=== PATIENT | female | born 1995 ===

== ENCOUNTER 2017-03-20 15:29 | Emergency (ER) | payer BC, MEDICAID ==
[2017-03-20 15:29] VITALS: BMI 37.0
[2017-03-20 16:31] LABS: BASO # 0.1 K/uL (0.0-0.2); BASO % 0.7 % (0.0-2.0); EOS # 0.1 K/uL (0.0-0.7); EOS % 0.7 % (0.0-4.0); HEMATOCRIT 38.1 % (34.0-47.0); LYMPH # 3.1 K/uL (1.0-4.3); LYMPH % 30.7 % (20.0-40.0); MEAN CORPUSCULAR HEMOGLOBIN 26.6 pg (27.0-31.0); MEAN CORPUSCULAR HGB CONC 33.1 g/dL (33.0-37.0); MEAN PLATELET VOLUME 8.5 fL (7.2-11.7); MONO # 0.4 K/uL (0.0-0.8); MONO % 4.1 % (0.0-10.0); RED CELL DISTRIBUTION WIDTH 14.4 % (11.5-14.5)
[2017-03-20 16:32] LABS: MEAN CELL VOLUME 80.3 fL (81.0-99.0)
[2017-03-20 16:38] LABS: CHLORIDE 101 mmol/L (98-107)
[2017-03-20 16:39] LABS: POTASSIUM 3.8 mmol/L (3.6-5.2); SODIUM 137 mmol/L (132-148)
[2017-03-20 16:41] LABS: ALB/GLOB RATIO 1.3 (1.0-2.1); ALKALINE PHOSPHATASE 71 U/L (38-126); AST/SGOT 29 U/L (14-36); BILIRUBIN,TOTAL 0.5 mg/dL (0.2-1.3); BLOOD UREA NITROGEN 11 mg/dL (7-17); CARBON DIOXIDE 24 mmol/L (22-30); GFR AFRICAN-AMERICAN > 60; TOTAL PROTEIN 7.7 g/dL (6.3-8.3)
[2017-03-20 16:42] LABS: ALCOHOL SERUM < 10 mg/dl (0-10); ALT/SGPT 27 U/L (9-52); CALCIUM 8.9 mg/dl (8.6-10.4); GLUCOSE,RANDOM 109 mg/dL (65-105)
--- NOTE | 2017-03-20 17:44 | C.PDOC ---
History Of Present Illness 21 y/o female presents to emergency department with complaint of feeling depressed with suicidal ideations. Patient states she wants to walk into traffic , and that she tried "to hang herself 2 days ago". Patient has had multiple previous ER visits for similar complaints. She denies any other complaints, and has no homicidal ideations. Time Seen by Provider: 03/20/17 15:37 Chief Complaint (Nursing): Psychiatric Evaluation History Per: Patient History/Exam Limitations: no limitations Current Symptoms Are (Timing): Still Present Suicide/Self Injury Attempted (Context): Other (states she attempted to hang herself 2 days ago) Severity: Moderate Associated Symptoms: Depression, Suicidal Thoughts, Suicidal Plan Past Medical History Reviewed: Historical Data, Nursing Documentation, Vital Signs Vital Signs: Last Vital Signs Temp 99 F 03/20/17 15:37 Pulse 95 H 03/20/17 15:37 Resp 18 03/20/17 15:37 BP 115/76 03/20/17 15:37 Pulse Ox 97 03/20/17 18:16 - Medical History PMH: Anxiety, Asthma, Back Problems (Scoliosis), Bipolar Disorder, Depression, Hypercholesterolemia (Prior history), Personality Disorder - [facility] Procedures FAMILY THERAPY (08/18/14) INDIVID PSYCHOTHERAP NEC (04/26/15) INDIVIDUAL PSYCHOTHERAPY, SUPPORTIVE (08/15/15) INJECT/INFUSE NEC (08/23/14) OTHER GROUP THERAPY (04/26/15) PSYCHIA INTERV/EVAL NEC (09/23/14) PSYCHIAT DRUG THERAP NEC (06/21/15) Family History: States: Diabetes - Social History Hx Tobacco Use: No Hx Alcohol Use: Yes Hx Substance Use: No - Immunization History Hx Tetanus Toxoid Vaccination: Yes Hx Influenza Vaccination: Yes Hx Pneumococcal Vaccination: No Review Of Systems Except As Marked, All Systems Reviewed And Found Negative. Constitutional: Negative for: Fever, Chills Cardiovascular: Negative for: Chest Pain Respiratory: Negative for: Shortness of Breath Gastrointestinal: Negative for: Abdominal Pain Skin: Negative for: Rash Psych: Positive for: Depression, Suicidal ideation Physical Exam - Physical Exam Appears: Non-toxic, Other (appears anxious) Skin: Warm, Dry Head: Normacephalic Eye(s): bilateral: Normal Inspection Oral Mucosa: Moist Neck: No Midline Cervical Tenderness, No Paracervical Tenderness, No Step Off Deformity, Supple, Other (no bruising or ecchymosis along the neck) Chest: Symmetrical Cardiovascular: Rhythm Regular Respiratory: Normal Breath Sounds, No Rales, No Rhonchi, No Wheezing Gastrointestinal/Abdominal: Normal Exam, Bowel Sounds, Soft, No Tenderness Back: Normal Inspection Extremity: Normal ROM, No Pedal Edema Neurological/Psych: Oriented x3 Gait: Steady ED Course And Treatment - Laboratory Results Result Diagrams: 03/20/17 16:21 03/20/17 16:21 O2 Sat by Pulse Oximetry: 97 (ra) Pulse Ox Interpretation: Normal Progress Note: Blood work, UA, UDS, Upreg ordered and reviewed. Lamictal ordered - patient has not had it in 1 day. 6:50pm- Still no urine given. Disposition - Disposition Disposition Time: 19:00 Condition: STABLE - Clinical Impression Clinical Impression: Depression, Suicidal ideation - Scribe Statement The provider has reviewed the documentation as recorded by the Scribe Luiz Smith All medical record entries made by the Scribe were at my direction and personally dictated by me. I have reviewed the chart and agree that the record accurately reflects my personal performance of the history, physical exam, medical decision making, and the department course for this patient. I have also personally directed, reviewed, and agree with the discharge instructions and disposition. Physician Patient Turnover Patient Signed Over To: Demetrius Osorio Handoff Comments: pending UA, UDS, Upreg, crisis
[2017-03-20 19:12] LABS: RBC URINE 3 /hpf (0-3); URINE BACTERIA RARE (<OCC); URINE BILIRUBIN NEGATIVE (NEGATIVE); URINE BLOOD NEGATIVE (NEGATIVE); URINE COLOR Yellow (YELLOW); URINE GLUCOSE (UA) NORMAL (Normal); URINE KETONE NEGATIVE (NEGATIVE); URINE LEUKOCYTE ESTERASE NEG Leu/uL (Negative); URINE PROTEIN NEGATIVE (NEGATIVE); URINE UROBILINOGEN NORMAL mg/dL (0.2-1.0); WBC URINE 1 /hpf (0-5)
[2017-03-21 04:24] VITALS: RESP 16
[2017-03-21 06:35] VITALS: BP 118/72; PULSE 80; TEMP 98.2; O2SAT 98
--- NOTE | 2017-03-21 07:34 | RAD ---
HISTORY: for psych screening COMPARISON: No prior. TECHNIQUE: Chest PA and lateral FINDINGS: LUNGS: Mild venous congestion. Mild right hilar prominence. PLEURA: No significant pleural effusion identified. No pneumothorax apparent. CARDIOVASCULAR: Normal. OSSEOUS STRUCTURES: No significant abnormalities. VISUALIZED UPPER ABDOMEN: Normal. OTHER FINDINGS: None. IMPRESSION: Mild venous congestion. Mild right hilar prominence.
--- NOTE | 2017-03-22 19:26 | CARD ---
APPROVED REPORT EKG Measurement Heart [id number] <Conclusion> Normal sinus rhythm Normal ECG
== END 2017-03-21 06:53 | disposition home or self-care (01) ==
LOC: C.ER 15:29
DX: F60.9 Personality disorder, unspecified (principal); F32.89 Other specified depressive episodes
CPT/HCPCS: 71020; 80053; 80299; 81001; 84703; 85025; 93005; 99285; G0480

== ENCOUNTER 2017-11-11 20:22 | Emergency (ER) | payer BC, MEDICAID ==
[2017-11-11 20:22] VITALS: BMI 43.0
[2017-11-11 20:38] VITALS: BP 121/84; PULSE 98; RESP 20; TEMP 98; O2SAT 98
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
== END 2017-11-11 22:16 | disposition home or self-care (01) ==
LOC: C.ER 20:22
DX: F41.9 Anxiety disorder, unspecified (principal); F31.9 Bipolar disorder, unspecified

== ENCOUNTER 2018-01-10 03:48 | Inpatient (IN) | payer BC, MEDICAID ==
[2018-01-10 03:49] VITALS: BMI 43.0
[2018-01-10 04:00] VITALS: O2SAT 97
[2018-01-10 04:18] LABS: BASO # 0.1 K/uL (0.0-0.2); BASO % 0.8 % (0.0-2.0); EOS # 0.8 K/uL (0.0-0.7); EOS % 9.4 % (0.0-4.0); LYMPH # 3.2 K/uL (1.0-4.3); LYMPH % 36.9 % (20.0-40.0); MEAN CELL VOLUME 81.6 fL (81.0-99.0); MEAN CORPUSCULAR HEMOGLOBIN 27.2 pg (27.0-31.0); MEAN CORPUSCULAR HGB CONC 33.4 g/dL (33.0-37.0); MEAN PLATELET VOLUME 8.1 fL (7.2-11.7); MONO # 0.3 K/uL (0.0-0.8); MONO % 3.5 % (0.0-10.0); NEUT # 4.3 K/uL (1.8-7.0); NEUT % 49.4 % (50.0-75.0); RBC 4.76 Mil/uL (3.80-5.20); RED CELL DISTRIBUTION WIDTH 13.3 % (11.5-14.5); WHITE BLOOD COUNT 8.7 K/uL (4.8-10.8)
[2018-01-10 04:32] LABS: ALB/GLOB RATIO 1.1 (1.0-2.1); ALBUMIN 4.2 g/dL (3.5-5.0); ALT/SGPT 27 U/L (9-52); AST/SGOT 25 U/L (14-36); BLOOD UREA NITROGEN 13 mg/dL (7-17); CALCIUM 8.8 mg/dl (8.6-10.4); GFR AFRICAN-AMERICAN > 60; GFR NON-AFRICAN AMERICAN > 60
--- NOTE | 2018-01-10 04:45 | C.PDOC ---
History Of Present Illness 22 year old female, history of bipolar disorder and non-compliant with her medications, presents to ED reporting suicidal ideation. Patient states she is thinking of hanging herself. She denies any homicidal ideation, auditory or visual hallucinations. She offers no medical complaints. Time Seen by Provider: 01/10/18 03:58 Chief Complaint (Nursing): Psychiatric Evaluation History Per: Patient History/Exam Limitations: no limitations Suicide/Self Injury Attempted (Context): None Associated Symptoms: Suicidal Thoughts, Suicidal Plan Past Medical History Reviewed: Historical Data, Nursing Documentation, Vital Signs Vital Signs: Last Vital Signs Temp 97.8 F 01/10/18 03:55 Pulse 71 01/10/18 03:55 Resp 16 01/10/18 03:55 BP 118/79 01/10/18 03:55 Pulse Ox 97 01/10/18 05:23 - Medical History PMH: Anxiety, Asthma, Back Problems (Scoliosis), Bipolar Disorder, Depression, Hypercholesterolemia (Prior history), Personality Disorder Surgical History: No Surg Hx - [facility] Procedures FAMILY THERAPY (08/18/14) GROUP PSYCHOTHERAPY (11/12/17) INDIVID PSYCHOTHERAP NEC (04/26/15) INDIVIDUAL PSYCHOTHERAPY, COGNITIVE-BEHAVIORAL (11/12/17) INDIVIDUAL PSYCHOTHERAPY, SUPPORTIVE (08/15/15) INJECT/INFUSE NEC (08/23/14) INTRODUCTION OF SERUM/TOX/VACCINE INTO MUSCLE, PERC APPROACH (11/12/17) OTHER GROUP THERAPY (04/26/15) PSYCHIA INTERV/EVAL NEC (09/23/14) PSYCHIAT DRUG THERAP NEC (06/21/15) Family History: States: Unknown Family Hx, Diabetes - Social History Hx Tobacco Use: No Hx Alcohol Use: Yes Hx Substance Use: No - Immunization History Hx Tetanus Toxoid Vaccination: No Hx Influenza Vaccination: No Hx Pneumococcal Vaccination: No Review Of Systems Except As Marked, All Systems Reviewed And Found Negative. Constitutional: Negative for: Fever, Chills Cardiovascular: Negative for: Chest Pain Respiratory: Negative for: Shortness of Breath Gastrointestinal: Negative for: Abdominal Pain Psych: Positive for: Suicidal ideation Physical Exam - Physical Exam Appears: Non-toxic Skin: Normal Color, Warm, Dry, Other (no gordon noted to neck or wrists) Head: Atraumatic, Normacephalic Eye(s): bilateral: Normal Inspection, PERRL, EOMI Oral Mucosa: Moist Neck: Normal ROM, Supple Chest: Symmetrical Cardiovascular: Rhythm Regular Respiratory: Normal Breath Sounds Gastrointestinal/Abdominal: Normal Exam, Soft, No Tenderness Extremity: Normal ROM, No Tenderness, No Deformity Neurological/Psych: Oriented x3, Normal Speech Gait: Steady ED Course And Treatment - Laboratory Results Result Diagrams: 01/10/18 04:12 01/10/18 04:12 O2 Sat by Pulse Oximetry: 97 (RA) Pulse Ox Interpretation: Normal Medical Decision Making Medical Decision Making: Impression: Suicidal ideation Prior records reviewed: patient evaluated multiple times at [facility] for similar presentation. Patient last seen there 2 days ago, was evaluated by crisis team and discharged home. Plan: -- UDS -- Urinalysis -- Urine HCG -- CBC -- Crisis evaluation Progress: 519 Labs ordered and reviewed. In my clinical judgment patient is medically cleared and stable for psychiatric admission. 604 ARIEL Lorenzo evaluated patient and discussed case with Dr Herman, who accepted patient for admission to psych unit for major depression. Disposition - Disposition Disposition: HOSPITALIZED Disposition Time: 06:06 Condition: STABLE - POA Present On Arrival: None - Clinical Impression Clinical Impression: Major depression - PA / EARLY CHILDHOOD EDUCATOR AIDE / Resident Statement MD/DO has reviewed & agrees with the documentation as recorded. - Scribe Statement The provider has reviewed the documentation as recorded by the Scribe (Emma Hatch) Provider Attestation: All medical record entries made by the Scribe were at my direction and personally dictated by me. I have reviewed the chart and agree that the record accurately reflects my personal performance of the history, physical exam, medical decision making, and the department course for this patient. I have also personally directed, reviewed, and agree with the discharge instructions and disposition. Decision To Admit - Pt Status Changed To: Hospital Disposition Of: Inpatient - Admit Certification Admit to Inpatient:: After my assessment, the patient will require hospitalization for at least two midnights. This is because of the severity of symptoms shown, intensity of services needed, and/or the medical risk in this patient being treated as an outpatient. - InPatient: Physician Admission Certification: I certify that this patient requires 2 or more midnights of care for the following reason:: Patient with major depression and recurrent episodes and expressing suicidal thoughts. Patient non-compliant with her medications and will benefit from inpatient treatment - . Bed Request Type: Psychiatry Admitting Physician: Teagan Herman Patient Diagnosis: Major depression
[2018-01-10 05:07] LABS: SQUAMOUS EPITHIAL 4 /hpf (0-5); URINE BACTERIA RARE (<OCC); URINE BILIRUBIN NEGATIVE (NEGATIVE); URINE CLARITY Hazy (Clear); URINE COLOR Yellow (YELLOW); URINE GLUCOSE (UA) NORMAL (Normal); URINE LEUKOCYTE ESTERASE NEG Leu/uL (Negative); URINE PROTEIN NEGATIVE (NEGATIVE); URINE UROBILINOGEN NORMAL mg/dL (0.2-1.0)
[2018-01-10 05:16] LABS: BARBITURATES, UR NEGATIVE (NEGATIVE); BENZODIAZEPINES, UR NEGATIVE (NEGATIVE); HCG,QUALITATIVE URINE NEGATIVE (NEGATIVE); OPIATES, UR NEGATIVE (NEGATIVE); PHENCYCLIDINE, UR NEGATIVE (NEGATIVE)
[2018-01-10 05:17] LABS: URINE BLOOD TRACE (NEGATIVE)
--- NOTE | 2018-01-10 06:59 | PCM.BM ---
Treatment Plan Problems - Problems identified on initial assessmt Depression Date Initiated: 01/10/18 Time Initiated: 06:30 Assessment reference: NA Status: Active Suicidal Ideation Date Initiated: 01/10/18 Time Initiated: 06:30 Assessment reference: NA Status: Active Treatment assets and liabiliti Patient Assests: cooperative, ADL independent, physically healthy, negotiates basic needs Patient Liabilities: financial problems, poor support system, relationship conflicts - Milieu Protocol Maintain good personal hygiene: daily Encourage regular showers, daily Remind patient to perform daily oral care, every shift Assist patient to perform ADL's Conduct patient checks and document Observation sheet: Q15 minutes Maintain personal safety: every shift Educate patient to report safety concerns to staff, every shift Monitor environment for contraband/sharps Medication safety: Monitor for expected outcome, potential side effects: every shift, Assess barriers to learning: every shift, Assess readiness for medication education: every shift
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
--- NOTE | 2018-01-11 14:04 | PCM.PYCHPN ---
Psychiatric Progress Note - Psychiatric Progress Note Patient seen today, length of contact: 15 minutes Patient Chief Complaint: I'm fine, I have no suicidal ideations and I want to go home. Problems Identified/Issues Discussed: Patient seen, chart reviewed, case discussed with the staff. Issues related to illness and treatment were discussed with the patient. Reported compliant with treatment with no adverse affects. Reported feeling little better. Mood reported as okay. Affect appropriate. Patient is becoming better, needs more time. Stabilization. Patient signed 48 notice for discharge ending tomorrow. Awake alert oriented 3, no delusions, no auditory or visual hallucinations, no suicidal ideations or homicidal ideations at the time of evaluation. Medical Problems: None reported Diagnostic Results: Reviewed DSM 5 Symptoms Update: Improving with treatment Medication Change: No Medical Record Reviewed: Yes Mental Status Examination - Cognitive Function Orientation: Person, Place, Situation, Time Memory: Intact Attention: WNL Concentration: WNL Association: WN Fund of Knowledge: [facility] Decription of patient's judgement and insights: Poor - Mood Mood: Neutral - Affect Affect: Depressed - Speech Speech: Appropriate - Formal Thought Process Formal Thought Process: No Impairment Psychotic Thoughts and Behaviors: None - Suicidal Ideation Suicidal Ideation: No - Homicidal Ideation Homicidal Ideation: No Goal/Treatment Plan - Goal/Treatment Plan Need for Continued Stay: Remain at risks for inpatient hospitalization, Discharge may exacerbated symptoms, Severe functional impairment Progress Toward Problem(s) and Goals/Treatment Plan: Patient education. Supportive therapy. Continue treatment as before. Estimated Date of D/C: 01/15/18 - Smoking Cessation Smoking Cessation Initiated: No
[2018-01-12 06:10] VITALS: BP 128/83; PULSE 65; RESP 18; TEMP 97.6
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
[2018-01-13] MEDS ORDERED: Pneumococcal 23-Valent Vaccine IM ONE (10:00)
== END 2018-01-12 11:20 | disposition home or self-care (01) | DRG 885 ==
LOC: C.ER 03:48 → C.5E 06:04
PROVIDERS: ADMIT Psychiatry & Neurology Psychiatry; ATTEND Psychiatry & Neurology Psychiatry
PROC: GZ56ZZZ Individual Psychotherapy, Supportive (ICD-10-PCS; principal; 2018-01-10)
DX: F31.4 Bipolar disorder, current episode depressed, severe, without psychotic features (principal); R45.851 Suicidal ideations; Z91.14 Patient's other noncompliance with medication regimen; F60.3 Borderline personality disorder; Z59.0 Homelessness

== ENCOUNTER 2018-01-29 | Emergency (ER) | payer BC, MEDICAID ==
[2018-01-29 00:01] VITALS: BMI 43.0
[2018-01-29 00:16] VITALS: RESP 18
--- NOTE | 2018-01-29 01:34 | C.PDOC ---
History Of Present Illness 22 year old female presents to the ED c/o suicidal ideation stating she wants to self mutilate. Patient has not gone through with her plan yet. Patient reports she is compliant with her psych medications. Patient denies other physical complaints. Time Seen by Provider: 01/29/18 00:46 Chief Complaint (Nursing): Psychiatric Evaluation History Per: Patient History/Exam Limitations: no limitations Onset/Duration Of Symptoms: Days Current Symptoms Are (Timing): Still Present Suicide/Self Injury Attempted (Context): None Modifying Factor(s): None Severity: None Associated Symptoms: Depression, Suicidal Thoughts. denies: Suicidal Plan Recent travel outside of the [place]: No Additional History Per: Patient Past Medical History Reviewed: Historical Data, Nursing Documentation, Vital Signs Vital Signs: Last Vital Signs Temp 97.8 F 01/29/18 01:48 Pulse 77 01/29/18 01:48 Resp 18 01/29/18 01:48 BP 112/74 01/29/18 01:48 Pulse Ox 99 01/29/18 02:04 - Medical History PMH: Anxiety, Asthma, Back Problems (Scoliosis), Bipolar Disorder, Depression, Hypercholesterolemia (Prior history), Personality Disorder Denies: Diabetes, Hepatitis, HIV, HTN, Chronic Kidney Disease, Seizures, Sexually Transmitted Disease Surgical History: No Surg Hx - [facility] Procedures FAMILY THERAPY (08/18/14) GROUP PSYCHOTHERAPY (11/12/17) INDIVID PSYCHOTHERAP NEC (04/26/15) INDIVIDUAL PSYCHOTHERAPY, COGNITIVE-BEHAVIORAL (11/12/17) INDIVIDUAL PSYCHOTHERAPY, SUPPORTIVE (01/10/18) INJECT/INFUSE NEC (08/23/14) INTRODUCTION OF SERUM/TOX/VACCINE INTO MUSCLE, PERC APPROACH (11/12/17) OTHER GROUP THERAPY (04/26/15) PSYCHIA INTERV/EVAL NEC (09/23/14) PSYCHIAT DRUG THERAP NEC (06/21/15) Family History: States: Unknown Family Hx, Diabetes - Social History Hx Tobacco Use: No Hx Alcohol Use: Yes Hx Substance Use: No - Immunization History Hx Tetanus Toxoid Vaccination: No Hx Influenza Vaccination: Yes Hx Pneumococcal Vaccination: No Review Of Systems Constitutional: Negative for: Fever, Chills Cardiovascular: Negative for: Chest Pain Respiratory: Negative for: Shortness of Breath Gastrointestinal: Negative for: Nausea, Vomiting, Abdominal Pain Skin: Negative for: Rash Psych: Positive for: Depression, Suicidal ideation Physical Exam - Physical Exam Appears: Non-toxic, No Acute Distress Skin: Normal Color, Warm, Dry Head: Atraumatic, Normacephalic Eye(s): bilateral: Normal Inspection Nose: No Discharge Oral Mucosa: Moist Neck: Normal ROM, Supple Chest: Symmetrical Cardiovascular: Rhythm Regular, No Murmur Respiratory: Normal Breath Sounds, No Rales, No Rhonchi, No Wheezing Gastrointestinal/Abdominal: Soft, No Tenderness, No Guarding, No Rebound Extremity: Normal ROM Neurological/Psych: Oriented x3 Gait: Steady ED Course And Treatment - Laboratory Results Result Diagrams: 01/29/18 01:02 O2 Sat by Pulse Oximetry: 99 (ON RA) Pulse Ox Interpretation: Normal Progress Note: Plan: - Labs. - UA. - 1:1 OBS. Patient was seen by [facility] workers compensation claims supervisor who discussed the case with Dr. Virgil christie automobile service station attendant who recommends the patient be D/C and follow up outpatient. Disposition - Disposition Referrals: [facility] [Outside] Disposition: HOME/ ROUTINE Disposition Time: 01:31 Condition: STABLE Additional Instructions: Please follow up with your psychiatrist Continue all your meds Return to ER if worse Instructions: Borderline Personality Disorder Forms: [facility] (Macedonian) - POA Present On Arrival: Deep Vein Thrombosis / PE - Clinical Impression Clinical Impression: Borderline personality disorder - PA / [employer] STATISTICAL PROGRAMMER / Resident Statement MD/DO has reviewed & agrees with the documentation as recorded. - Scribe Statement The provider has reviewed the documentation as recorded by the Scribe Jonathan Taylor All medical record entries made by the Scribe were at my direction and personally dictated by me. I have reviewed the chart and agree that the record accurately reflects my personal performance of the history, physical exam, medical decision making, and the department course for this patient. I have also personally directed, reviewed, and agree with the discharge instructions and disposition.
[2018-01-29 01:35] LABS: BARBITURATES, UR NEGATIVE (NEGATIVE); BENZODIAZEPINES, UR NEGATIVE (NEGATIVE); OPIATES, UR NEGATIVE (NEGATIVE); PHENCYCLIDINE, UR NEGATIVE (NEGATIVE)
[2018-01-29 01:36] LABS: URINE COLOR YELLOW (YELLOW)
[2018-01-29 01:37] LABS: SQUAMOUS EPITHIAL 3 /hpf (0-5); URINE BILIRUBIN NEGATIVE (NEGATIVE); URINE BLOOD NEGATIVE (NEGATIVE); URINE CLARITY Clear (Clear); URINE GLUCOSE (UA) NEGATIVE (Normal); URINE LEUKOCYTE ESTERASE NEGATIVE Leu/uL (Negative); URINE PROTEIN NEGATIVE (NEGATIVE); URINE UROBILINOGEN Normal mg/dL (0.2-1.0)
[2018-01-29 01:38] LABS: ALB/GLOB RATIO 1.1 (1.0-2.1); ALBUMIN 4.3 g/dL (3.5-5.0); ALT/SGPT 25 U/L (9-52); AST/SGOT 28 U/L (14-36); BLOOD UREA NITROGEN 13 mg/dL (7-17); CALCIUM 8.9 mg/dl (8.6-10.4); GFR AFRICAN-AMERICAN > 60; GFR NON-AFRICAN AMERICAN 56
[2018-01-29 01:49] VITALS: BP 112/74; PULSE 77; TEMP 97.8
[2018-01-29 02:02] VITALS: O2SAT 99
[2018-01-29 07:21] LABS: BASO # 0.1 K/uL (0.0-0.2); HEMOGLOBIN 13.2 g/dL (11.0-16.0); MEAN CELL VOLUME 82.6 fL (81.0-99.0); MEAN CORPUSCULAR HEMOGLOBIN 27.7 pg (27.0-31.0); MEAN CORPUSCULAR HGB CONC 33.5 g/dL (33.0-37.0); MONO # 0.5 K/uL (0.0-0.8); RBC 4.78 Mil/uL (3.80-5.20); RED CELL DISTRIBUTION WIDTH 13.9 % (11.5-14.5); WHITE BLOOD COUNT 10.4 K/uL (4.8-10.8)
[2018-01-29 07:22] LABS: BASO % 0.7 % (0.0-2.0); EOS # 0.2 K/uL (0.0-0.7); EOS % 2.2 % (0.0-4.0); LYMPH # 4.6 K/uL (1.0-4.3); LYMPH % 43.7 % (20.0-40.0); MONO % 4.9 % (0.0-10.0); NEUT % 48.5 % (50.0-75.0)
== END 2018-01-29 01:48 | disposition home or self-care (01) ==
LOC: SUPCPDRO → C.ER
DX: F60.3 Borderline personality disorder (principal); E78.00 Pure hypercholesterolemia, unspecified
CPT/HCPCS: 80053; 81001; 85025; 99284; G0480

== ENCOUNTER 2018-04-29 20:49 | Emergency (ER) | payer BC, MEDICAID ==
[2018-04-29 20:50] VITALS: BMI 43.0
[2018-04-29 21:03] VITALS: BP 135/93; PULSE 79; RESP 20; TEMP 97.8; O2SAT 98
--- NOTE | 2018-04-29 21:13 | C.PDOC ---
History Of Present Illness 22 year old female presents to the ER via EMS after her sister called 911 because patient was being argumentative. Patient has a Hx of bipolar disorder, schizophrenia, and has had many prior evaluations for the same. Denies ETOH use today or other complaints. Time Seen by Provider: 04/29/18 21:09 Chief Complaint (Nursing): Psychiatric Evaluation History Per: Patient History/Exam Limitations: no limitations Onset/Duration Of Symptoms: Hrs Suicide/Self Injury Attempted (Context): None Modifying Factor(s): None Associated Symptoms: denies: Depression, Suicidal Thoughts Involuntary Hold By: None Recent travel outside of the [place]: No Past Medical History Vital Signs: Last Vital Signs Temp 97.8 F 04/29/18 20:59 Pulse 79 04/29/18 20:59 Resp 20 04/29/18 20:59 BP 135/93 H 04/29/18 20:59 Pulse Ox 98 04/29/18 21:12 - Medical History PMH: Anxiety, Asthma, Back Problems (Scoliosis), Bipolar Disorder, Depression, Hypercholesterolemia (Prior history), Personality Disorder - [facility] Procedures FAMILY THERAPY (08/18/14) GROUP PSYCHOTHERAPY (11/12/17) INDIVID PSYCHOTHERAP NEC (04/26/15) INDIVIDUAL PSYCHOTHERAPY, COGNITIVE-BEHAVIORAL (11/12/17) INDIVIDUAL PSYCHOTHERAPY, SUPPORTIVE (01/10/18) INJECT/INFUSE NEC (08/23/14) INTRODUCTION OF SERUM/TOX/VACCINE INTO MUSCLE, PERC APPROACH (11/12/17) OTHER GROUP THERAPY (04/26/15) PSYCHIA INTERV/EVAL NEC (09/23/14) PSYCHIAT DRUG THERAP NEC (06/21/15) Family History: States: Diabetes - Social History Hx Tobacco Use: No Hx Alcohol Use: Yes Hx Substance Use: No - Immunization History Hx Tetanus Toxoid Vaccination: No Hx Influenza Vaccination: Yes Hx Pneumococcal Vaccination: No Review Of Systems Constitutional: Negative for: Fever, Chills Cardiovascular: Negative for: Chest Pain, Palpitations Respiratory: Negative for: Cough, Shortness of Breath Gastrointestinal: Negative for: Nausea, Vomiting, Abdominal Pain Neurological: Negative for: Weakness, Numbness Psych: Negative for: Depression, Suicidal ideation Physical Exam - Physical Exam Appears: Non-toxic, No Acute Distress, Other (Pleasant, communicative, morbidly obese) Skin: Normal Color, Warm, Dry Head: Atraumatic, Normacephalic Eye(s): bilateral: Normal Inspection Oral Mucosa: Moist Neck: Normal, Supple Chest: Symmetrical, No Tenderness Cardiovascular: Rhythm Regular Respiratory: Normal Breath Sounds, No Rales, No Rhonchi, No Wheezing Gastrointestinal/Abdominal: Soft, No Tenderness Back: No CVA Tenderness, No Vertebral Tenderness, No Paraspinal Tenderness Extremity: Normal ROM (x4) Neurological/Psych: Oriented x3, Normal Speech Gait: Steady ED Course And Treatment O2 Sat by Pulse Oximetry: 98 (Room air) Pulse Ox Interpretation: Normal Medical Decision Making Medical Decision Making: baseline bipolar no acute issues. many presentations for same. no w/u indicated now. Disposition Doctor Will See Patient In The: Office Counseled Patient/Family Regarding: Studies Performed, Diagnosis - Disposition Referrals: Sherri Juares MD [Medical Doctor] - Disposition: HOME/ ROUTINE Disposition Time: 21:11 Condition: GOOD Additional Instructions: follow-up with your Psychiatrist as indicated Instructions: Bipolar Disorder Forms: [employer] (Ukrainian) - Clinical Impression Clinical Impression: Alteration in emotional state, Bipolar 2 disorder - Scribe Statement The provider has reviewed the documentation as recorded by the Scribe Michael Galindo All medical record entries made by the Scribe were at my direction and personally dictated by me. I have reviewed the chart and agree that the record accurately reflects my personal performance of the history, physical exam, medical decision making, and the department course for this patient. I have also personally directed, reviewed, and agree with the discharge instructions and disposition.
== END 2018-04-29 21:43 | disposition home or self-care (01) ==
LOC: C.ER 20:49
DX: F31.81 Bipolar II disorder (principal)

== ENCOUNTER 2018-07-23 15:06 | Emergency (ER) | payer BC, MEDICAID ==
[2018-07-23 15:25] VITALS: BMI 27.2
[2018-07-23 16:01] LABS: BASO # 0.1 K/uL (0.0-0.2); BASO % 0.6 % (0.0-2.0); EOS # 0.1 K/uL (0.0-0.7); EOS % 0.8 % (0.0-4.0); HEMOGLOBIN 14.2 g/dL (11.0-16.0); LYMPH # 3.1 K/uL (1.0-4.3); LYMPH % 32.5 % (20.0-40.0); MEAN CELL VOLUME 83.5 fL (81.0-99.0); MEAN CORPUSCULAR HEMOGLOBIN 28.2 pg (27.0-31.0); MEAN CORPUSCULAR HGB CONC 33.7 g/dL (33.0-37.0); MEAN PLATELET VOLUME 8.3 fL (7.2-11.7); MONO # 0.5 K/uL (0.0-0.8); MONO % 5.1 % (0.0-10.0); NEUT # 5.9 K/uL (1.8-7.0); NRBC % 0.1 % (0.0-2.0); RBC 5.03 Mil/uL (3.80-5.20); RED CELL DISTRIBUTION WIDTH 14.1 % (11.5-14.5); WHITE BLOOD COUNT 9.6 K/uL (4.8-10.8)
--- NOTE | 2018-07-23 16:09 | C.PDOC ---
History Of Present Illness 23 y/o female brought in by EMS for psychiatric evaluation. Patient was reportedly acting out at home, and someone called EMS who brought her here. Currently patient states she has suicidal thoughts, with no plan. On arrival patient is calm and cooperative, sitting in chair. <Liz Cline - Last Filed: 07/23/18 18:30> History Per: Patient History/Exam Limitations: no limitations Onset/Duration Of Symptoms: Hrs Current Symptoms Are (Timing): Still Present Suicide/Self Injury Attempted (Context): None Severity: Mild Associated Symptoms: Suicidal Thoughts <Liz Cline - Last Filed: 07/23/18 18:30> <[place] - Last Filed: 07/23/18 20:11> Time Seen by Provider: 07/23/18 15:20 Chief Complaint (Nursing): Psychiatric Evaluation Past Medical History Reviewed: Historical Data, Nursing Documentation, Vital Signs Vital Signs: Last Vital Signs Temp 98.6 F 07/23/18 15:07 Pulse 79 07/23/18 15:07 Resp 20 07/23/18 15:07 BP 129/83 07/23/18 15:07 Pulse Ox 98 07/23/18 15:07 - Medical History PMH: Anxiety, Asthma, Back Problems (Scoliosis), Bipolar Disorder, Depression, Hypercholesterolemia (Prior history), Personality Disorder Denies: Diabetes, Hepatitis, HIV, HTN, Chronic Kidney Disease, Seizures, Sexually Transmitted Disease - [facility] Procedures FAMILY THERAPY (08/18/14) GROUP PSYCHOTHERAPY (11/12/17) INDIVID PSYCHOTHERAP NEC (04/26/15) INDIVIDUAL PSYCHOTHERAPY, COGNITIVE-BEHAVIORAL (11/12/17) INDIVIDUAL PSYCHOTHERAPY, SUPPORTIVE (01/10/18) INJECT/INFUSE NEC (08/23/14) INTRODUCTION OF SERUM/TOX/VACCINE INTO MUSCLE, PERC APPROACH (11/12/17) OTHER GROUP THERAPY (04/26/15) PSYCHIA INTERV/EVAL NEC (09/23/14) PSYCHIAT DRUG THERAP NEC (06/21/15) Family History: States: Diabetes - Social History Hx Tobacco Use: No Hx Alcohol Use: Yes Hx Substance Use: No - Immunization History Hx Tetanus Toxoid Vaccination: No Hx Influenza Vaccination: Yes Hx Pneumococcal Vaccination: No <Liz Cline - Last Filed: 07/23/18 18:30> Vital Signs: Last Vital Signs Temp 98.8 F 07/23/18 20:00 Pulse 82 07/23/18 20:00 Resp 18 07/23/18 20:00 BP 114/78 07/23/18 20:00 Pulse Ox 97 07/23/18 20:00 - [facility] Procedures FAMILY THERAPY (08/18/14) GROUP PSYCHOTHERAPY (11/12/17) INDIVID PSYCHOTHERAP NEC (04/26/15) INDIVIDUAL PSYCHOTHERAPY, COGNITIVE-BEHAVIORAL (11/12/17) INDIVIDUAL PSYCHOTHERAPY, SUPPORTIVE (01/10/18) INJECT/INFUSE NEC (08/23/14) INTRODUCTION OF SERUM/TOX/VACCINE INTO MUSCLE, PERC APPROACH (11/12/17) OTHER GROUP THERAPY (04/26/15) PSYCHIA INTERV/EVAL NEC (09/23/14) PSYCHIAT DRUG THERAP NEC (06/21/15) <[place]els [place] - Last Filed: 07/23/18 20:11> Review Of Systems Except As Marked, All Systems Reviewed And Found Negative. Constitutional: Negative for: Fever Cardiovascular: Negative for: Chest Pain Respiratory: Negative for: Shortness of Breath Gastrointestinal: Negative for: Abdominal Pain Psych: Positive for: Depression, Suicidal ideation. Negative for: Other (hallucinations or homicidal ideation) <Liz Cline - Last Filed: 07/23/18 18:30> Physical Exam - Physical Exam Appears: Non-toxic, No Acute Distress Skin: Normal Color, Warm, Dry Head: Atraumatic, Normacephalic Eye(s): bilateral: Normal Inspection, PERRL, EOMI Oral Mucosa: Moist Neck: Normal ROM Chest: Symmetrical Cardiovascular: Rhythm Regular, No Murmur Respiratory: Normal Breath Sounds, No Accessory Muscle Use Gastrointestinal/Abdominal: Soft, No Tenderness, No Distention Extremity: Bilateral: Atraumatic, Normal Color And Temperature, Normal ROM Neurological/Psych: Oriented x3, Normal Speech Gait: Steady <Liz Cline Last Filed: 07/23/18 18:30> ED Course And Treatment - Laboratory Results Result Diagrams: 07/23/18 15:53 07/23/18 15:53 Lab Interpretation: Normal O2 Sat by Pulse Oximetry: 98 (RA) Pulse Ox Interpretation: Normal Progress Note: Case discussed with crisis supervisor mold cleaning and storage who will interview patient. Patient calm and cooperative Reassessment Condition: Unchanged <Liz Cline - Last Filed: 07/23/18 18:30> - Laboratory Results Result Diagrams: 07/23/18 15:53 07/23/18 15:53 Progress Note: Patient evaluated by crisis and is cleared for discharge. <Jewels [place] - Last Filed: 07/23/18 20:11> Medical Decision Making Medical Decision Making: Initial Plan: Labs ordered. Patient placed on 1:1 observation. Spoke to crisis, made aware of patient. <Liz Cline - Last Filed: 07/23/18 18:30> Disposition - Disposition Disposition Time: 19:00 - POA Present On Arrival: None <Liz Cline - Last Filed: 07/23/18 18:30> Counseled Patient/Family Regarding: Studies Performed, Diagnosis, Need For Followup - Disposition Disposition Time: 20:09 <Jewels [place] - Last Filed: 07/23/18 20:11> - Disposition Disposition: HOME/ ROUTINE Condition: STABLE Instructions: Bipolar Disorder Forms: [employer] (Yakut) - Clinical Impression Clinical Impression: Depression, Bipolar disorder - PA / TALENT SOURCER / Resident Statement MD/DO has reviewed & agrees with the documentation as recorded. - Scribe Statement The provider has reviewed the documentation as recorded by the Scribe (María Jose) All medical record entries made by the Scribe were at my direction and personally dictated by me. I have reviewed the chart and agree that the record accurately reflects my personal performance of the history, physical exam, medical decision making, and the department course for this patient. I have also personally directed, reviewed, and agree with the discharge instructions and di sposition. <Liz Cline - Last Filed: 07/23/18 18:30> Physician Patient Turnover Patient Signed Over To: Jewels Mills <Liz Cline Last Filed: 07/23/18 18:30>
[2018-07-23 16:16] LABS: ALB/GLOB RATIO 1.3 (1.0-2.1); ALBUMIN 4.8 g/dL (3.5-5.0); ALT/SGPT 35 U/L (9-52); AST/SGOT 28 U/L (14-36); BLOOD UREA NITROGEN 13 mg/dL (7-17); CALCIUM 9.9 mg/dl (8.6-10.4); GFR NON-AFRICAN AMERICAN > 60
[2018-07-23 20:08] VITALS: BP 114/78; PULSE 82; RESP 18; TEMP 98.8; O2SAT 97
== END 2018-07-23 20:15 | disposition home or self-care (01) ==
LOC: C.ER 15:06
DX: F32.9 Major depressive disorder, single episode, unspecified (principal)
CPT/HCPCS: 80053; 83735; 84100; 85025; 99284; G0480

== ENCOUNTER 2018-09-11 07:14 | Emergency (ER) | payer BC, MEDICAID ==
[2018-09-11 07:15] VITALS: BMI 43.3
[2018-09-11 07:27] VITALS: BP 120/83; PULSE 69; RESP 18; TEMP 97.4; O2SAT 100
--- NOTE | 2018-09-11 07:32 | C.PDOC ---
History Of Present Illness 23 y/o female with history of bipolar disorder, Anxiety and borderline personality disorder presents to ED with c/o major anxiety for 2 days. Patient states she usually takes xanax 2mg PRN, states she ran out 2 days and next appointment with PMD is on 09/24/18. Patient requesting medication refill until her next appointment with PMD. Patient denies SI/HI, auditory or visual hallucinations. No other complaints at this time. history of bipolar disorder and borderline personality disorder Time Seen by Provider: 09/11/18 07:23 Chief Complaint (Nursing): Med Refill History Per: Patient History/Exam Limitations: no limitations Onset/Duration Of Symptoms: Days Current Symptoms Are (Timing): Still Present Suicide/Self Injury Attempted (Context): None Modifying Factor(s): None Associated Symptoms: Anxiety Past Medical History Reviewed: Historical Data, Nursing Documentation, Vital Signs Vital Signs: Last Vital Signs Temp 97.4 F L 09/11/18 07:23 Pulse 69 09/11/18 07:23 Resp 18 09/11/18 07:23 BP 120/83 09/11/18 07:23 Pulse Ox 100 09/11/18 07:23 - Medical History PMH: Anxiety, Asthma, Back Problems (Scoliosis), Bipolar Disorder, Depression, Hypercholesterolemia (Prior history), Personality Disorder Surgical History: No Surg Hx - [facility] Procedures FAMILY THERAPY (08/18/14) GROUP PSYCHOTHERAPY (11/12/17) INDIVID PSYCHOTHERAP NEC (04/26/15) INDIVIDUAL PSYCHOTHERAPY, COGNITIVE-BEHAVIORAL (11/12/17) INDIVIDUAL PSYCHOTHERAPY, SUPPORTIVE (01/10/18) INJECT/INFUSE NEC (08/23/14) INTRODUCTION OF SERUM/TOX/VACCINE INTO MUSCLE, PERC APPROACH (11/12/17) OTHER GROUP THERAPY (04/26/15) PSYCHIA INTERV/EVAL NEC (09/23/14) PSYCHIAT DRUG THERAP NEC (06/21/15) Family History: States: Diabetes - Social History Hx Tobacco Use: No Hx Alcohol Use: Yes Hx Substance Use: No - Immunization History Hx Tetanus Toxoid Vaccination: No Hx Influenza Vaccination: Yes Hx Pneumococcal Vaccination: No Review Of Systems Cardiovascular: Negative for: Chest Pain Respiratory: Negative for: Cough, Shortness of Breath Gastrointestinal: Negative for: Nausea, Vomiting Skin: Negative for: Rash Psych: Positive for: Anxiety. Negative for: Depression, Suicidal ideation Physical Exam - Physical Exam Appears: Non-toxic, No Acute Distress Skin: Warm, Dry, No Rash Head: Atraumatic, Normacephalic Eye(s): bilateral: Normal Inspection Oral Mucosa: Moist Neck: Normal ROM, Supple Cardiovascular: Rhythm Regular Respiratory: Normal Breath Sounds, No Rales, No Rhonchi, No Wheezing Gastrointestinal/Abdominal: Soft, No Tenderness, No Guarding, No Rebound Neurological/Psych: Oriented x3, Normal Speech, Normal Cognition ED Course And Treatment O2 Sat by Pulse Oximetry: 100 (RA) Pulse Ox Interpretation: Normal Medical Decision Making Medical Decision Making: Discussed with patient hospital policy on given patients prescriptions for narcotics, advised she can have dose at ED but no prescriptions of Xanax can be given. Disposition Counseled Patient/Family Regarding: Studies Performed, Diagnosis, Need For Followup - Disposition Referrals: YOUR,PSYCHIATRIST [Other] Disposition: HOME/ ROUTINE Disposition Time: 07:33 Condition: IMPROVED Instructions: Anxiety, Adult (DC) Forms: [employer] [facility] (Ecuadorean) - Clinical Impression Clinical Impression: Anxiety - Scribe Statement The provider has reviewed the documentation as recorded by the [place] All medical record entries made by the [place] were at my direction and personally dictated by me. I have reviewed the chart and agree that the record accurately reflects my personal performance of the history, physical exam, medical decision making, and the department course for this patient. I have also personally directed, reviewed, and agree with the discharge instructions and disposition.
== END 2018-09-11 07:46 | disposition home or self-care (01) ==
LOC: C.ER 07:14
DX: F41.9 Anxiety disorder, unspecified (principal)

== ENCOUNTER 2018-09-14 12:15 | Emergency (ER) | payer BC, MEDICAID ==
[2018-09-14 12:16] VITALS: BMI 43.3
--- NOTE | 2018-09-14 13:18 | C.PDOC ---
History Of Present Illness 23 y/o female, with history of bipolar disorder, presents to ED for psychiatric evaluation. Patient was found agitated outside in public, reportedly spitting at police officers. Patient does report drinking half a bottle of Naveen Goodrich today and has been seen here in ER numeral times for similar. No psychiatric or physical complaints at this time. Patient was agitated upon arrival in ED but was calm and cooperative upon assessment. Time Seen by Provider: 09/14/18 12:46 Chief Complaint (Nursing): Substance Abuse History Per: Patient History/Exam Limitations: no limitations Onset/Duration Of Symptoms: Hrs Current Symptoms Are (Timing): Still Present Past Medical History Reviewed: Historical Data, Nursing Documentation, Vital Signs - Medical History PMH: Anxiety, Asthma, Back Problems (Scoliosis), Bipolar Disorder, Depression, Hypercholesterolemia (Prior history), Personality Disorder Denies: Diabetes, Hepatitis, HIV, HTN, Chronic Kidney Disease, Seizures, Sexually Transmitted Disease - [facility] Procedures FAMILY THERAPY (08/18/14) GROUP PSYCHOTHERAPY (11/12/17) INDIVID PSYCHOTHERAP NEC (04/26/15) INDIVIDUAL PSYCHOTHERAPY, COGNITIVE-BEHAVIORAL (11/12/17) INDIVIDUAL PSYCHOTHERAPY, SUPPORTIVE (01/10/18) INJECT/INFUSE NEC (08/23/14) INTRODUCTION OF SERUM/TOX/VACCINE INTO MUSCLE, PERC APPROACH (11/12/17) OTHER GROUP THERAPY (04/26/15) PSYCHIA INTERV/EVAL NEC (09/23/14) PSYCHIAT DRUG THERAP NEC (06/21/15) Family History: States: Diabetes - Social History Hx Tobacco Use: No Hx Alcohol Use: Yes Hx Substance Use: No - Immunization History Hx Tetanus Toxoid Vaccination: No Hx Influenza Vaccination: Yes Hx Pneumococcal Vaccination: No Review Of Systems Except As Marked, All Systems Reviewed And Found Negative. Constitutional: Negative for: Fever, Chills Cardiovascular: Negative for: Chest Pain Respiratory: Negative for: Shortness of Breath Psych: Positive for: Other (Public intoxication) Physical Exam - Physical Exam Appears: Non-toxic, No Acute Distress Skin: Warm, Dry Head: Atraumatic, Normacephalic Eye(s): bilateral: Normal Inspection Oral Mucosa: Moist Chest: Symmetrical Cardiovascular: Rhythm Regular, No Murmur Respiratory: Normal Breath Sounds, No Rales, No Rhonchi, No Wheezing Extremity: No Pedal Edema Extremity: Bilateral: Atraumatic Neurological/Psych: Oriented x3, Normal Speech ED Course And Treatment - Laboratory Results Result Diagrams: 09/14/18 14:37 09/14/18 14:14 Medical Decision Making Medical Decision Making: Plan: --Bloodwork --Ativan --Geodon --Urinalysis shortly after my intial assessment. pt again agited, yelling at rn. pt theatenig to leave. pt medicated for safety of her self and staf.. 20:28 On reassessment patient is awake, ambulatory with steady gait, and smiling. She denies any suicidal or homicidal ideation at present time. Offers no further psychiatric complaints. Patient is stable for discharge home. Counseled regar ding course of discharge and the importance of follow up. Disposition Counseled Patient/Family Regarding: Diagnosis, Need For Followup - Disposition Referrals: [facility] [Outside] Disposition: HOME/ ROUTINE Disposition Time: 20:30 Condition: STABLE Additional Instructions: return to er with worsening. Instructions: Alcohol Poisoning (DC) Forms: [employer] [facility] (Belgian) - POA Present On Arrival: None - Clinical Impression Clinical Impression: Alcohol abuse - Scribe Statement The provider has reviewed the documentation as recorded by the Lyniblexus Rivera Provider Attestation: All medical record entries made by the [place] were at my direction and personally dictated by me. I have reviewed the chart and agree that the record accurately reflects my personal performance of the history, physical exam, medical decision making, and the department course for this patient. I have also personally directed, reviewed, and agree with the discharge instructions and disposition.
[2018-09-14 14:31] LABS: ALB/GLOB RATIO 1.2 (1.0-2.1); ALBUMIN 3.9 g/dL (3.5-5.0); ALT/SGPT 25 U/L (9-52); AST/SGOT 31 U/L (14-36); BLOOD UREA NITROGEN 9 mg/dL (7-17); CALCIUM 8.9 mg/dl (8.6-10.4); GFR NON-AFRICAN AMERICAN > 60
[2018-09-14 14:36] LABS: SALICYLATE < 1.0 [, mg/dL 1]
[2018-09-14 14:44] LABS: ACETAMINOPHEN < 10.0 ug/mL (10.0-30.0)
[2018-09-14 14:51] LABS: BASO % 0.6 % (0.0-2.0); EOS # 0.1 K/uL (0.0-0.7); EOS % 1.3 % (0.0-4.0); HEMOGLOBIN 12.2 g/dL (11.0-16.0); LYMPH # 2.5 K/uL (1.0-4.3); LYMPH % 36.5 % (20.0-40.0); MEAN CELL VOLUME 84.5 fL (81.0-99.0); MEAN CORPUSCULAR HEMOGLOBIN 27.7 pg (27.0-31.0); MEAN CORPUSCULAR HGB CONC 32.8 g/dL (33.0-37.0); MEAN PLATELET VOLUME 8.6 fL (7.2-11.7); MONO # 0.4 K/uL (0.0-0.8); MONO % 5.2 % (0.0-10.0); NEUT # 3.9 K/uL (1.8-7.0); NEUT % 56.4 % (50.0-75.0); NRBC % 0.1 % (0.0-2.0); RBC 4.41 Mil/uL (3.80-5.20); RED CELL DISTRIBUTION WIDTH 13.7 % (11.5-14.5); WHITE BLOOD COUNT 6.9 K/uL (4.8-10.8)
[2018-09-14 20:00] LABS: SQUAMOUS EPITHIAL 20 /hpf (0-5); URINE BACTERIA FEW (<OCC); URINE BILIRUBIN NEGATIVE (NEGATIVE); URINE BLOOD 3+ (NEGATIVE); URINE CLARITY Hazy (Clear); URINE COLOR Yellow (YELLOW); URINE GLUCOSE (UA) NORMAL (Normal); URINE LEUKOCYTE ESTERASE NEG Leu/uL (Negative); URINE PROTEIN NEGATIVE (NEGATIVE); URINE UROBILINOGEN NORMAL mg/dL (0.2-1.0)
[2018-09-14 20:08] VITALS: O2SAT 100
[2018-09-14 20:12] LABS: BARBITURATES, UR NEGATIVE (NEGATIVE); BENZODIAZEPINES, UR NEGATIVE (NEGATIVE); OPIATES, UR NEGATIVE (NEGATIVE); PHENCYCLIDINE, UR NEGATIVE (NEGATIVE)
[2018-09-14 21:30] VITALS: BP 136/79; PULSE 85; RESP 17; TEMP 98.5
== END 2018-09-14 21:29 | disposition home or self-care (01) ==
LOC: C.ER 12:15
DX: F10.10 Alcohol abuse, uncomplicated (principal); E78.00 Pure hypercholesterolemia, unspecified; F31.9 Bipolar disorder, unspecified; M41.9 Scoliosis, unspecified
CPT/HCPCS: 80053; 80178; 81001; 83735; 84100; 85025; 96372; 99284; G0480; J2060; J3486

== ENCOUNTER 2018-09-28 09:39 | Emergency (ER) | payer BC, MEDICAID ==
[2018-09-28 09:39] VITALS: BMI 43.3
[2018-09-28 09:55] VITALS: RESP 18
--- NOTE | 2018-09-28 10:49 | C.PDOC ---
History Of Present Illness Pt is a 23 y/o female, with history of depression, anxiety and suicidal attempt (suicide attempt was at age 16), presents to ED for psychiatric evaluation. Patient states "I was in a state of weakness" and she pulled a knife on herself but did not actually injure herself. States she accidentally pointed the knife at the epidemiology internship for one second until it was taken away from her. Patient denies any hallucinations, hearing voices, or drug abuse. Patient states she switched from lithium to abilify a couple of weeks ago. Pt states she didn't mean anything by this and that she is calm now and wants to Time Seen by Provider: 09/28/18 10:25 Chief Complaint (Nursing): Psychiatric Evaluation History Per: Patient History/Exam Limitations: no limitations Onset/Duration Of Symptoms: Days Current Symptoms Are (Timing): Still Present Past Medical History Reviewed: Historical Data, Nursing Documentation, Vital Signs Vital Signs: Last Vital Signs Temp 98.1 F 09/28/18 09:51 Pulse 85 09/28/18 09:51 Resp 18 09/28/18 09:51 BP 151/99 H 09/28/18 09:51 Pulse Ox 100 09/28/18 09:51 - Medical History PMH: Anxiety, Asthma, Back Problems (Scoliosis), Bipolar Disorder, Depression, Hypercholesterolemia (Prior history), Personality Disorder Denies: Diabetes, Hepatitis, HIV, HTN, Chronic Kidney Disease, Seizures, Sexually Transmitted Disease - [facility] Procedures FAMILY THERAPY (08/18/14) GROUP PSYCHOTHERAPY (11/12/17) INDIVID PSYCHOTHERAP NEC (04/26/15) INDIVIDUAL PSYCHOTHERAPY, COGNITIVE-BEHAVIORAL (11/12/17) INDIVIDUAL PSYCHOTHERAPY, SUPPORTIVE (01/10/18) INJECT/INFUSE NEC (08/23/14) INTRODUCTION OF SERUM/TOX/VACCINE INTO MUSCLE, PERC APPROACH (11/12/17) OTHER GROUP THERAPY (04/26/15) PSYCHIA INTERV/EVAL NEC (09/23/14) PSYCHIAT DRUG THERAP NEC (06/21/15) Family History: States: Diabetes - Social History Hx Tobacco Use: No Hx Alcohol Use: Yes Hx Substance Use: No - Immunization History Hx Tetanus Toxoid Vaccination: No Hx Influenza Vaccination: Yes Hx Pneumococcal Vaccination: No Review Of Systems Except As Marked, All Systems Reviewed And Found Negative. Psych: Positive for: Anxiety, Depression, Suicidal ideation Physical Exam - Physical Exam Appears: Non-toxic, No Acute Distress, Other (Obese) Skin: Warm, Dry, No Rash Head: Atraumatic, Normacephalic Eye(s): bilateral: Normal Inspection, PERRL, EOMI Oral Mucosa: Moist Neck: Supple Chest: Symmetrical Cardiovascular: Rhythm Regular, No Murmur Respiratory: Normal Breath Sounds, No Rales, No Rhonchi, No Wheezing Gastrointestinal/Abdominal: Soft, No Tenderness Extremity: Bilateral: Atraumatic, Normal Color And Temperature, Normal ROM Neurological/Psych: Oriented x3, Normal Speech ED Course And Treatment - Laboratory Results Result Diagrams: 09/28/18 10:52 09/28/18 10:52 O2 Sat by Pulse Oximetry: 100 (RA) Pulse Ox Interpretation: Normal Medical Decision Making Medical Decision Making: Initial Impression: Suicidal gesture but also aimed knife at police Initial Plan: --Bloodwork --Urinaylsis --Crisis evaluation (I spoke to Crisis and they will evaluate the pt) Progress Note(s): Patient is medically stable at this time for psychiatric disposition / Disposition Counseled Patient/Family Regarding: Studies Performed, Diagnosis, Need For Follo wup - Disposition Disposition: HOME/ ROUTINE Disposition Time: 12:24 Condition: STABLE Additional Instructions: Ms. Pozo, thank you for letting us take care of you today. Return to the ER if any problems. Please follow up with your psychiatrist in 2-3 days for a re-evaluation. Continue to take all of your current medications. Instructions: Depression, Adult (DC) Forms: Melty (Cymraes) Print Language: BRUNEIAN - POA Present On Arrival: None - Clinical Impression Clinical Impression: Major depressive disorder - Scribe Statement The provider has reviewed the documentation as recorded by the Lynibe Melida Rivera Provider Attestation: All medical record entries made by the Scribe were at my direction and personally dictated by me. I have reviewed the chart and agree that the record accurately reflects my personal performance of the history, physical exam, medical decision making, and the department course for this patient. I have also personally directed, reviewed, and agree with the discharge instructions and disposition.
[2018-09-28 10:55] LABS: BASO % 0.6 % (0.0-2.0); EOS # 0.2 K/uL (0.0-0.7); EOS % 2.2 % (0.0-4.0); HEMOGLOBIN 13.3 g/dL (11.0-16.0); LYMPH # 2.8 K/uL (1.0-4.3); LYMPH % 34.4 % (20.0-40.0); MEAN CELL VOLUME 85.6 fL (81.0-99.0); MEAN CORPUSCULAR HGB CONC 32.7 g/dL (33.0-37.0); MEAN PLATELET VOLUME 8.6 fL (7.2-11.7); MONO # 0.4 K/uL (0.0-0.8); MONO % 5.4 % (0.0-10.0); NEUT # 4.6 K/uL (1.8-7.0); NEUT % 57.4 % (50.0-75.0); RBC 4.77 Mil/uL (3.80-5.20); WHITE BLOOD COUNT 8.1 K/uL (4.8-10.8)
[2018-09-28 11:24] LABS: ALB/GLOB RATIO 1.3 (1.0-2.1); ALBUMIN 4.3 g/dL (3.5-5.0); ALT/SGPT 26 U/L (9-52); AST/SGOT 23 U/L (14-36); BLOOD UREA NITROGEN 14 mg/dL (7-17); CALCIUM 9.3 mg/dl (8.6-10.4); GFR NON-AFRICAN AMERICAN > 60
[2018-09-28 11:27] LABS: SQUAMOUS EPITHIAL 15 /hpf (0-5); URINE BILIRUBIN NEGATIVE (NEGATIVE); URINE BLOOD NEGATIVE (NEGATIVE); URINE CLARITY Hazy (Clear); URINE COLOR Yellow (YELLOW); URINE GLUCOSE (UA) NORMAL (Normal); URINE LEUKOCYTE ESTERASE NEG Leu/uL (Negative); URINE PROTEIN NEGATIVE (NEGATIVE); URINE UROBILINOGEN NORMAL mg/dL (0.2-1.0)
[2018-09-28 11:50] LABS: BARBITURATES, UR NEGATIVE (NEGATIVE); BENZODIAZEPINES, UR NEGATIVE (NEGATIVE); OPIATES, UR NEGATIVE (NEGATIVE); PHENCYCLIDINE, UR NEGATIVE (NEGATIVE)
[2018-09-28 12:35] VITALS: BP 113/75; PULSE 76; TEMP 98.2
[2018-09-28 14:02] VITALS: O2SAT 100
== END 2018-09-28 12:42 | disposition home or self-care (01) ==
LOC: C.ER 09:39
DX: F32.9 Major depressive disorder, single episode, unspecified (principal); E78.00 Pure hypercholesterolemia, unspecified
CPT/HCPCS: 80053; 80178; 81001; 83735; 84100; 84703; 85025; 99283; G0480

== ENCOUNTER 2018-10-08 22:48 | Emergency (ER) | payer BC, MEDICAID ==
[2018-10-08 22:48] VITALS: BMI 43.3
[2018-10-08 23:16] VITALS: RESP 20; TEMP 97.9
--- NOTE | 2018-10-09 00:04 | C.PDOC ---
History Of Present Illness 23 year old female presents to the ER with a complaint of abdominal pain that began today associated with headache, nausea, and vomiting. Chief Complaint (Nursing): Abdominal Pain History Per: Patient History/Exam Limitations: no limitations Onset/Duration Of Symptoms: Hrs Current Symptoms Are (Timing): Still Present Quality Of Discomfort: Unable To Describe Associated Symptoms: Nausea, Vomiting, Other (Headache) Exacerbating Factors: None Alleviating Factors: Rest Recent travel outside of the [place]: No Abnormal Vaginal Bleeding: No Past Medical History Reviewed: Historical Data, Nursing Documentation, Vital Signs Vital Signs: Last Vital Signs Temp 97.9 F 10/08/18 23:10 Pulse 73 10/08/18 23:10 Resp 20 10/08/18 23:10 BP 115/80 10/08/18 23:10 Pulse Ox 98 10/08/18 23:10 - Medical History PMH: Anxiety, Asthma, Back Problems (Scoliosis), Bipolar Disorder, Depression, Hypercholesterolemia (Prior history), Personality Disorder Denies: Diabetes, Hepatitis, HIV, HTN, Chronic Kidney Disease, Seizures, Sexually Transmitted Disease - [facility] Procedures FAMILY THERAPY (08/18/14) GROUP PSYCHOTHERAPY (11/12/17) INDIVID PSYCHOTHERAP NEC (04/26/15) INDIVIDUAL PSYCHOTHERAPY, COGNITIVE-BEHAVIORAL (11/12/17) INDIVIDUAL PSYCHOTHERAPY, SUPPORTIVE (01/10/18) INJECT/INFUSE NEC (08/23/14) INTRODUCTION OF SERUM/TOX/VACCINE INTO MUSCLE, PERC APPROACH (11/12/17) OTHER GROUP THERAPY (04/26/15) PSYCHIA INTERV/EVAL NEC (09/23/14) PSYCHIAT DRUG THERAP NEC (06/21/15) Family History: States: Diabetes - Social History Hx Tobacco Use: No Hx Alcohol Use: Yes Hx Substance Use: No - Immunization History Hx Tetanus Toxoid Vaccination: No Hx Influenza Vaccination: Yes Hx Pneumococcal Vaccination: No Review Of Systems Constitutional: Negative for: Fever, Chills Cardiovascular: Negative for: Chest Pain, Palpitations Respiratory: Negative for: Cough, Shortness of Breath Gastrointestinal: Positive for: Nausea, Vomiting, Abdominal Pain Neurological: Negative for: Weakness, Numbness Physical Exam - Physical Exam Appears: Non-toxic, Other (Mild distress) Skin: Normal Color, Warm, Dry Head: Atraumatic, Normacephalic Eye(s): bilateral: Normal Inspection Oral Mucosa: Moist Neck: Normal, Supple, Other (No rigidity) Chest: Symmetrical, No Tenderness Cardiovascular: Rhythm Regular Respiratory: Normal Breath Sounds, No Rales, No Rhonchi, No Wheezing Gastrointestinal/Abdominal: Soft, Tenderness (Periumbilical/epigastric area), No Guarding, No Rebound, Other (Obese) Back: No CVA Tenderness Neurological/Psych: Oriented x3, Normal Speech ED Course And Treatment - Laboratory Results Result Diagrams: 10/09/18 00:21 10/09/18 00:21 O2 Sat by Pulse Oximetry: 98 (Room air) Pulse Ox Interpretation: Normal Progress Note: CT head, CT abd/pel, blood work, and urinalysis ordered. IV fluids, zofran, and toradol administered. Patient refuses to wait for results of CT abd/pel, will leave AMA. Disposition Counseled Patient/Family Regarding: Diagnosis - Disposition Referrals: [facility] [Outside] Disposition: AGAINST MEDICAL ADVICE Disposition Time: 03:54 Condition: STABLE Prescriptions: Dicyclomine [Dicyclomine HCl] 10 mg PO Q6 #7 cap Instructions: Acute Abdomen (Belly Pain), Vitamins (Multiple/Pediatric) Forms: [employer] Connect (French) - POA Present On Arrival: None - Clinical Impression Clinical Impression: Abdominal pain - Scribe Statement The provider has reviewed the documentation as recorded by the Scribe Michael Galindo All medical record entries made by the Scribe were at my direction and personally dictated by me. I have reviewed the chart and agree that the record accurately reflects my personal performance of the history, physical exam, medical decision making, and the department course for this patient. I have also personally directed, reviewed, and agree with the discharge instructions and disposition.
[2018-10-09] MEDS ORDERED: Sodium Chloride 0.9% 1,000 ML IV ONE (00:05)
[2018-10-09] MEDS ORDERED: Iohexol 240 (50 ml) PO ONE (00:06)
[2018-10-09] MEDS ORDERED: Sodium Chloride 0.9% 1,000 ML ONE (00:10)
[2018-10-09] MEDS ORDERED: Iodixanol 320 MG/ML 100 ML BOTTLE IV ONE (00:14)
[2018-10-09] MEDS ORDERED: Iohexol 240 (50 ml) ONE (00:21)
[2018-10-09 00:24] LABS: BASO % 1.3 % (0.0-2.0); EOS % 1.2 % (0.0-4.0); HEMOGLOBIN 12.1 g/dL (11.0-16.0); LYMPH % 37.8 % (20.0-40.0); MEAN CELL VOLUME 85.9 fL (81.0-99.0); MEAN CORPUSCULAR HEMOGLOBIN 28.4 pg (27.0-31.0); MEAN CORPUSCULAR HGB CONC 33.1 g/dL (33.0-37.0); MEAN PLATELET VOLUME 8.4 fL (7.2-11.7); MONO % 5.3 % (0.0-10.0); NEUT # 4.3 K/uL (1.8-7.0); NEUT % 54.4 % (50.0-75.0); RBC 4.26 Mil/uL (3.80-5.20); RED CELL DISTRIBUTION WIDTH 13.8 % (11.5-14.5); WHITE BLOOD COUNT 7.9 K/uL (4.8-10.8)
[2018-10-09 00:25] LABS: BASO # 0.1 K/uL (0.0-0.2); EOS # 0.1 K/uL (0.0-0.7); MONO # 0.4 K/uL (0.0-0.8)
[2018-10-09 00:45] LABS: ALB/GLOB RATIO 1.2 (1.0-2.1); ALBUMIN 3.9 g/dL (3.5-5.0); ALT/SGPT 28 U/L (9-52); AST/SGOT 24 U/L (14-36); BLOOD UREA NITROGEN 9 mg/dL (7-17); CALCIUM 8.7 mg/dl (8.6-10.4); GFR NON-AFRICAN AMERICAN > 60; LIPASE 75 U/L (23-300)
[2018-10-09 00:46] LABS: HCG,QUALITATIVE URINE NEGATIVE (NEGATIVE); SQUAMOUS EPITHIAL 13 /hpf (0-5); URINE BACTERIA FEW (<OCC); URINE BILIRUBIN NEGATIVE (NEGATIVE); URINE BLOOD NEGATIVE (NEGATIVE); URINE CLARITY Hazy (Clear); URINE COLOR Yellow (YELLOW); URINE GLUCOSE (UA) NORMAL (Normal); URINE LEUKOCYTE ESTERASE NEG Leu/uL (Negative); URINE PROTEIN NEGATIVE (NEGATIVE); URINE UROBILINOGEN NORMAL mg/dL (0.2-1.0)
[2018-10-09 02:46] VITALS: BP 109/73; PULSE 72
[2018-10-09 03:57] VITALS: O2SAT 98
--- NOTE | 2018-10-09 09:48 | CT ---
Date of service: 10/09/2018 PROCEDURE: CT HEAD WITH CONTRAST HISTORY: Headache. COMPARISON: No prior study available for comparison. TECHNIQUE: Axial computed tomography images were obtained through the head/brain with intravenous contrast. Contrast dose: Radiation dose: Total exam DLP = 1023.48 mGy-cm. This CT exam was performed using one or more of the following dose reduction techniques: Automated exposure control, adjustment of the mA and/or kV according to patient size, and/or use of iterative reconstruction technique. FINDINGS: HEMORRHAGE: No intracranial hemorrhage. BRAIN: No mass, mass effect or edema. No abnormal intracranial enhancement. No atrophy or chronic microvascular ischemic changes. VENTRICLES: Unremarkable. No hydrocephalus. CALVARIUM: Unremarkable. PARANASAL SINUSES: 1 or 2 opacified left-sided ethmoid air cells.. MASTOID AIR CELLS: Unremarkable as visualized. No mastoid effusion. OTHER FINDINGS: None. IMPRESSION: Normal contrast enhanced CT of the head.
--- NOTE | 2018-10-09 14:52 | CT ---
PROCEDURE: CT Abdomen and Pelvis with oral and IV contrast. HISTORY: abd pain/tenderness COMPARISON: CT abdomen and pelvis with contrast performed 02/12/15 TECHNIQUE: Contiguous axial images of the abdomen and pelvis. Oral and IV contrast was administered. Coronal and Sagittal reformats generated and reviewed. Contrast dose: 100 mL Visipaque IV Radiation dose: Total exam DLP = 1171.08 mGy-cm. This CT exam was performed using one or more of the following dose reduction techniques: Automated exposure control, adjustment of the mA and/or kV according to patient size, and/or use of iterative reconstruction technique. FINDINGS: LOWER THORAX: No visible consolidation, pleural effusion, or pneumothorax. 5 mm right middle lobe nodule (series 3, image 5), stable. LIVER: Hepatomegaly. Hypoattenuation of the liver compatible with hepatic steatosis. GALLBLADDER AND BILE DUCTS: Unremarkable. PANCREAS: Unremarkable. SPLEEN: Unremarkable. ADRENALS: Unremarkable. KIDNEYS AND URETERS: The kidneys enhance symmetrically. No hydronephrosis or obstructing renal calculus. BLADDER: The urinary bladder appears unremarkable. REPRODUCTIVE: Uterus is present. APPENDIX: The appendix appears within normal limits of caliber. No secondary signs of acute appendicitis. BOWEL: Gastric lap band. The stomach is nondistended. The bowel loops appear within normal limits of caliber without evidence of intestinal obstruction. Diverticulosis without CT evidence of acute diverticulitis. Moderate constipation. PERITONEUM: No significant free fluid. No definite free air. LYMPH NODES: No bulky lymphadenopathy identified. VASCULATURE: No aortic aneurysm. No atherosclerotic calcification or mural plaque present. BONES: No acute osseous abnormality is detected. OTHER FINDINGS: None. IMPRESSION: Gastric lap band. Diverticulosis without CT evidence of acute diverticulitis. Moderate constipation. Hepatic steatosis. Hepatomegaly. 5 mm right middle lobe nodule, stable. Preliminary impression was provided by [facility]. The findings discussed with STONE Payton on 10/09/18 at 2:48 p.m.
== END 2018-10-09 04:10 | disposition left against medical advice (07) ==
LOC: C.ER 22:48
DX: R10.33 Periumbilical pain (principal)
CPT/HCPCS: 70460; 74177; 80053; 81001; 83690; 84703; 85025; 96374; 96375; 99285; J1885; J2405; J7030; Q9966; Q9967

== ENCOUNTER 2018-10-14 07:13 | Emergency (ER) | payer BC, MEDICAID ==
[2018-10-14 07:13] VITALS: BMI 43.3
[2018-10-14 07:27] VITALS: RESP 18; TEMP 97.9; O2SAT 98
[2018-10-14 08:13] LABS: BASO % 0.7 % (0.0-2.0); EOS # 0.1 K/uL (0.0-0.7); EOS % 1.4 % (0.0-4.0); HEMOGLOBIN 13.3 g/dL (11.0-16.0); LYMPH # 2.4 K/uL (1.0-4.3); LYMPH % 32.3 % (20.0-40.0); MEAN CELL VOLUME 85.9 fL (81.0-99.0); MEAN CORPUSCULAR HEMOGLOBIN 28.6 pg (27.0-31.0); MEAN CORPUSCULAR HGB CONC 33.3 g/dL (33.0-37.0); MEAN PLATELET VOLUME 8.7 fL (7.2-11.7); MONO # 0.4 K/uL (0.0-0.8); MONO % 4.8 % (0.0-10.0); NEUT # 4.5 K/uL (1.8-7.0); NEUT % 60.8 % (50.0-75.0); RBC 4.65 Mil/uL (3.80-5.20); RED CELL DISTRIBUTION WIDTH 13.8 % (11.5-14.5); WHITE BLOOD COUNT 7.4 K/uL (4.8-10.8)
[2018-10-14 08:16] LABS: HCG,QUALITATIVE URINE NEGATIVE (NEGATIVE)
[2018-10-14 08:17] LABS: SQUAMOUS EPITHIAL 4 /hpf (0-5); URINE BILIRUBIN NEGATIVE (NEGATIVE); URINE BLOOD 2+ (NEGATIVE); URINE CLARITY Clear (Clear); URINE COLOR Yellow (YELLOW); URINE GLUCOSE (UA) NORMAL (Normal); URINE LEUKOCYTE ESTERASE NEG Leu/uL (Negative); URINE PROTEIN NEGATIVE (NEGATIVE); URINE UROBILINOGEN NORMAL mg/dL (0.2-1.0)
[2018-10-14 08:31] LABS: BARBITURATES, UR NEGATIVE (NEGATIVE); BENZODIAZEPINES, UR NEGATIVE (NEGATIVE); OPIATES, UR NEGATIVE (NEGATIVE); PHENCYCLIDINE, UR NEGATIVE (NEGATIVE)
[2018-10-14 08:48] LABS: ALB/GLOB RATIO 1.3 (1.0-2.1); ALBUMIN 4.4 g/dL (3.5-5.0); ALT/SGPT 24 U/L (9-52); AST/SGOT 32 U/L (14-36); BLOOD UREA NITROGEN 14 mg/dL (7-17); GFR NON-AFRICAN AMERICAN > 60
--- NOTE | 2018-10-14 09:24 | C.PDOC ---
History Of Present Illness 23 years old female presents to ED for complaints of suicidal ideation. Patient states she tried to stab herself last night before someone stopped her. Patient currently expresses suicidal ideation and is tearful and crying. Denies any other complaints. Chief Complaint (Nursing): Psychiatric Evaluation History Per: Patient History/Exam Limitations: no limitations Onset/Duration Of Symptoms: Hrs Current Symptoms Are (Timing): Still Present Suicide/Self Injury Attempted (Context): None Associated Symptoms: Suicidal Thoughts, Suicidal Plan Involuntary Hold By: None Recent travel outside of the [place]: No Past Medical History Reviewed: Historical Data, Nursing Documentation, Vital Signs Vital Signs: Last Vital Signs Temp 97.9 F 10/14/18 07:19 Pulse 73 10/14/18 07:19 Resp 18 10/14/18 07:19 BP 123/84 10/14/18 07:19 Pulse Ox 98 10/14/18 07:19 - Medical History PMH: Anxiety, Asthma, Back Problems (Scoliosis), Bipolar Disorder, Depression, Hypercholesterolemia, Personality Disorder - [facility] Procedures FAMILY THERAPY (08/18/14) GROUP PSYCHOTHERAPY (11/12/17) INDIVID PSYCHOTHERAP NEC (04/26/15) INDIVIDUAL PSYCHOTHERAPY, COGNITIVE-BEHAVIORAL (11/12/17) INDIVIDUAL PSYCHOTHERAPY, SUPPORTIVE (01/10/18) INJECT/INFUSE NEC (08/23/14) INTRODUCTION OF SERUM/TOX/VACCINE INTO MUSCLE, PERC APPROACH (11/12/17) OTHER GROUP THERAPY (04/26/15) PSYCHIA INTERV/EVAL NEC (09/23/14) PSYCHIAT DRUG THERAP NEC (06/21/15) Family History: States: Diabetes - Social History Hx Tobacco Use: No Hx Alcohol Use: Yes Hx Substance Use: No - Immunization History Hx Tetanus Toxoid Vaccination: Yes Hx Influenza Vaccination: No Hx Pneumococcal Vaccination: No Review Of Systems Constitutional: Negative for: Fever, Chills Gastrointestinal: Negative for: Nausea, Vomiting, Abdominal Pain, Diarrhea Skin: Negative for: Rash Neurological: Negative for: Weakness, Numbness Psych: Positive for: Suicidal ideation Physical Exam - Physical Exam Appears: Non-toxic, No Acute Distress, Other (Tearful and crying ) Skin: Warm, Dry, No Rash Head: Atraumatic, Normacephalic Eye(s): bilateral: Normal Inspection, PERRL, EOMI Oral Mucosa: Moist Neck: Normal ROM, Supple Chest: Symmetrical, No Tenderness Cardiovascular: Rhythm Regular, No Murmur Respiratory: Normal Breath Sounds, No Rales, No Rhonchi, No Wheezing, Other (NARD) Gastrointestinal/Abdominal: Normal Exam, Soft, No Tenderness Extremity: Normal ROM Extremity: Bilateral: Atraumatic, Normal Color And Temperature, Normal ROM Pulses: Left Radial: Normal, Right Radial: Normal Neurological/Psych: Oriented x3, Normal Speech, Other (Expressing suicidal ideation ) ED Course And Treatment - Laboratory Results Result Diagrams: 10/14/18 08:08 10/14/18 08:08 O2 Sat by Pulse Oximetry: 98 (RA) Pulse Ox Interpretation: Normal Progress Note: Ordered blood work and urinalysis. Crisis notified. Patient is medically cleared and was accepted for an admission by . Disposition - Disposition Disposition: HOSPITALIZED Disposition Time: 09:30 Condition: STABLE - Clinical Impression Clinical Impression: Suicidal intent, Bipolar 1 disorder - PA / PUPPY SITTER / Resident Statement MD/DO has reviewed & agrees with the documentation as recorded. - Scribe Statement The provider has reviewed the documentation as recorded by the Scriblexus Kearney All medical record entries made by the Lyniblexus were at my direction and personally dictated by me. I have reviewed the chart and agree that the record accurately reflects my personal performance of the history, physical exam, medical decision making, and the department course for this patient. I have also personally directed, reviewed, and agree with the discharge instructions and disposition. Decision To Admit - Pt Status Changed To: Hospital Disposition Of: Inpatient - Admit Certification Admit to Inpatient:: After my assessment, the patient will require hospitalization for at least two midnights. This is because of the severity of symptoms shown, intensity of services needed, and/or the medical risk in this pa tient being treated as an outpatient. - InPatient: Physician Admission Certification: I certify that this patient requires 2 or more midnights of care for the following reason:: Pt will need more than 2 days of inpatient treatment - . Bed Request Type: Psychiatry Admitting Physician: Teagan Herman Patient Diagnosis: Suicidal intent, Bipolar 1 disorder
[2018-10-14 10:04] VITALS: BP 115/75; PULSE 72
== END 2018-10-14 10:54 | disposition home or self-care (01) ==
LOC: C.ER 07:13 → C.5E 09:28 → UNDOADMIN 09:28
DX: F31.9 Bipolar disorder, unspecified (principal); R45.851 Suicidal ideations
CPT/HCPCS: 80053; 81001; 83735; 84100; 84703; 85025; 99283; G0480

== ENCOUNTER 2018-11-02 00:49 | Emergency (ER) | payer BC, MEDICAID ==
[2018-11-02 00:49] VITALS: BMI 45.8
[2018-11-02 01:02] VITALS: RESP 16
--- NOTE | 2018-11-02 01:04 | C.PDOC ---
History Of Present Illness 23 year old female with PMHx of personality disorder is brought to the ED by EMS for evaluation. Patient made threats of hurting herself after having an argument at home. Patient currently in the ED denies SI/HI, hallucinations, injury, fall, trauma. Patient had previous evaluation at [place] and this ED for same. Time Seen by Provider: 11/02/18 01:03 Chief Complaint (Nursing): Psychiatric Evaluation History Per: Patient, EMS History/Exam Limitations: no limitations Onset/Duration Of Symptoms: Hrs Current Symptoms Are (Timing): Still Present Suicide/Self Injury Attempted (Context): None Modifying Factor(s): None Associated Symptoms: Anger, Depression, Suicidal Thoughts. denies: Suicidal Plan Recent travel outside of the [place]: No Additional History Per: Patient, EMS Past Medical History Reviewed: Historical Data, Nursing Documentation, Vital Signs Vital Signs: Last Vital Signs Temp 98.0 F 11/02/18 01:00 Pulse 89 11/02/18 01:00 Resp 16 11/02/18 01:00 BP 131/85 11/02/18 01:00 Pulse Ox 97 11/02/18 01:00 - Medical History PMH: Anxiety, Asthma, Back Problems (Scoliosis), Bipolar Disorder, Depression, Hypercholesterolemia, Personality Disorder Denies: Diabetes, Hepatitis, HIV, HTN, Chronic Kidney Disease, Seizures, Sexually Transmitted Disease Surgical History: No Surg Hx - [facility] Procedures FAMILY THERAPY (08/18/14) GROUP PSYCHOTHERAPY (11/12/17) INDIVID PSYCHOTHERAP NEC (04/26/15) INDIVIDUAL PSYCHOTHERAPY, COGNITIVE-BEHAVIORAL (11/12/17) INDIVIDUAL PSYCHOTHERAPY, SUPPORTIVE (01/10/18) INJECT/INFUSE NEC (08/23/14) INTRODUCTION OF SERUM/TOX/VACCINE INTO MUSCLE, PERC APPROACH (11/12/17) OTHER GROUP THERAPY (04/26/15) PSYCHIA INTERV/EVAL NEC (09/23/14) PSYCHIAT DRUG THERAP NEC (06/21/15) Family History: States: Diabetes - Social History Hx Tobacco Use: No Hx Alcohol Use: Yes Hx Substance Use: No - Immunization History Hx Tetanus Toxoid Vaccination: Yes Hx Influenza Vaccination: No Hx Pneumococcal Vaccination: No Review Of Systems Constitutional: Negative for: Fever, Chills Cardiovascular: Negative for: Chest Pain Respiratory: Negative for: Shortness of Breath Gastrointestinal: Negative for: Nausea, Vomiting, Abdominal Pain Skin: Negative for: Rash Psych: Positive for: Depression, Suicidal ideation Physical Exam - Physical Exam Appears: Non-toxic, No Acute Distress Skin: Warm, Dry Head: Normacephalic Eye(s): bilateral: Normal Inspection Neck: Supple Chest: Symmetrical Cardiovascular: Rhythm Regular Respiratory: No Rales, No Rhonchi, No Wheezing Gastrointestinal/Abdominal: Soft, No Tenderness, No Guarding, No Rebound Extremity: Bilateral: Atraumatic, Normal Color And Temperature, Normal ROM Neurological/Psych: Oriented x3, Normal Speech, Normal Cognition Gait: Steady ED Course And Treatment - Laboratory Results Result Diagrams: 11/02/18 01:25 11/02/18 01:25 O2 Sat by Pulse Oximetry: 97 (ON RA) Pulse Ox Interpretation: Normal Progress Note: Plan: - Labs. - UA. - Crisis eval. 2:05 pt was cleared for discharge by dr faustin Disposition Counseled Patient/Family Regarding: Studies Performed, Diagnosis, Need For Followup - Disposition Disposition: HOME/ ROUTINE Disposition Time: 01:04 Condition: FAIR Instructions: Borderline Personality Disorder Forms: [employer] Connect (Hebrew) - Clinical Impression Clinical Impression: Borderline personality disorder - Scribe Statement The provider has reviewed the documentation as recorded by the Scribe Jonathan Taylor All medical record entries made by the Scribe were at my direction and personally dictated by me. I have reviewed the chart and agree that the record accurately reflects my personal performance of the history, physical exam, medical decision making, and the department course for this patient. I have also personally directed, reviewed, and agree with the discharge instructions and disposition.
[2018-11-02 01:28] LABS: BASO % 0.4 % (0.0-2.0); EOS # 0.1 K/uL (0.0-0.7); EOS % 1.3 % (0.0-4.0); HEMOGLOBIN 12.3 g/dL (11.0-16.0); LYMPH # 3.3 K/uL (1.0-4.3); LYMPH % 49.6 % (20.0-40.0); MEAN CELL VOLUME 84.6 fL (81.0-99.0); MEAN CORPUSCULAR HEMOGLOBIN 28.1 pg (27.0-31.0); MEAN CORPUSCULAR HGB CONC 33.3 g/dL (33.0-37.0); MEAN PLATELET VOLUME 8.3 fL (7.2-11.7); MONO # 0.6 K/uL (0.0-0.8); MONO % 8.8 % (0.0-10.0); NEUT # 2.7 K/uL (1.8-7.0); NEUT % 39.9 % (50.0-75.0); RBC 4.38 Mil/uL (3.80-5.20); RED CELL DISTRIBUTION WIDTH 13.5 % (11.5-14.5); WHITE BLOOD COUNT 6.6 K/uL (4.8-10.8)
[2018-11-02 01:42] LABS: ALB/GLOB RATIO 1.2 (1.0-2.1); ALBUMIN 3.9 g/dL (3.5-5.0); ALT/SGPT 27 U/L (9-52); AST/SGOT 27 U/L (14-36); BLOOD UREA NITROGEN 12 mg/dL (7-17); CALCIUM 8.7 mg/dl (8.6-10.4); GFR NON-AFRICAN AMERICAN > 60
[2018-11-02 02:17] VITALS: BP 123/81; PULSE 76; TEMP 97.8; O2SAT 98
== END 2018-11-02 02:42 | disposition home or self-care (01) ==
LOC: C.ER 00:49
DX: F60.3 Borderline personality disorder (principal); F41.9 Anxiety disorder, unspecified; E78.00 Pure hypercholesterolemia, unspecified
CPT/HCPCS: 80053; 83735; 84100; 85025; 99283; G0480

== ENCOUNTER 2018-11-15 08:31 | Emergency (ER) | payer BC, MEDICAID ==
[2018-11-15 08:31] VITALS: BMI 45.8
[2018-11-15 08:41] VITALS: BP 135/79; PULSE 88; RESP 20; TEMP 97.4; O2SAT 100
--- NOTE | 2018-11-15 09:10 | C.PDOC ---
History Of Present Illness 23 year old female with a history of bipolar disorder presents to the ED via EMS after an argument with her father. The patient is frequently seen in the ED and well known to the Crisis hospital department. She notes calling the police because she wanted to get into their home to retrieve her ID. At this time she ofters no medical complaints. The patient denies suicidal and homicidal ideations. Time Seen by Provider: 11/15/18 08:40 Chief Complaint (Nursing): Psychiatric Evaluation History Per: Patient History/Exam Limitations: no limitations Past Medical History Reviewed: Historical Data, Nursing Documentation, Vital Signs Vital Signs: Last Vital Signs Temp 97.4 F L 11/15/18 08:40 Pulse 88 11/15/18 08:40 Resp 20 11/15/18 08:40 BP 135/79 11/15/18 08:40 Pulse Ox 100 11/15/18 08:40 - Medical History PMH: Anxiety, Asthma, Back Problems (Scoliosis), Bipolar Disorder, Depression, Hypercholesterolemia, Personality Disorder Denies: Diabetes, Hepatitis, HIV, HTN, Chronic Kidney Disease, Seizures, Sexually Transmitted Disease - [facility] Procedures FAMILY THERAPY (08/18/14) GROUP PSYCHOTHERAPY (11/12/17) INDIVID PSYCHOTHERAP NEC (04/26/15) INDIVIDUAL PSYCHOTHERAPY, COGNITIVE-BEHAVIORAL (11/12/17) INDIVIDUAL PSYCHOTHERAPY, SUPPORTIVE (01/10/18) INJECT/INFUSE NEC (08/23/14) INTRODUCTION OF SERUM/TOX/VACCINE INTO MUSCLE, PERC APPROACH (11/12/17) OTHER GROUP THERAPY (04/26/15) PSYCHIA INTERV/EVAL NEC (09/23/14) PSYCHIAT DRUG THERAP NEC (06/21/15) Family History: States: Diabetes - Social History Hx Tobacco Use: No Hx Alcohol Use: Yes Hx Substance Use: No - Immunization History Hx Tetanus Toxoid Vaccination: Yes Hx Influenza Vaccination: No Hx Pneumococcal Vaccination: No Review Of Systems Except As Marked, All Systems Reviewed And Found Negative. Psych: Negative for: Suicidal ideation, Other (homicidal ideations. ) Physical Exam - Physical Exam Appears: Non-toxic, No Acute Distress, Other (walking around the ED. agitated. cooperative.) Skin: Warm, Dry Head: Atraumatic, Normacephalic Eye(s): bilateral: Normal Inspection Oral Mucosa: Moist Neck: Normal ROM Gastrointestinal/Abdominal: Soft, No Tenderness, Other (abdomen obese. ) Neurological/Psych: Oriented x3, Normal Speech, Normal Cognition ED Course And Treatment O2 Sat by Pulse Oximetry: 100 (RA) Pulse Ox Interpretation: Normal Medical Decision Making Medical Decision Making: Progress/Update: The patient's vital signs remain stable, she is walking around the ED. Patient discharged home. Disposition Counseled Patient/Family Regarding: Diagnosis - Disposition Disposition: HOME/ ROUTINE Disposition Time: 09:08 Condition: STABLE Instructions: Bipolar Disorder (DC) Forms: General Discharge Instructions - POA Present On Arrival: None - Clinical Impression Clinical Impression: Bipolar 1 disorder - Scribe Statement The provider has reviewed the documentation as recorded by the Scribe (Em Davis) Provider Attestation: All medical record entries made by the Scribe were at my direction and personally dictated by me. I have reviewed the chart and agree that the record accurately reflects my personal performance of the history, physical exam, medical decision making, and the department course for this patient. I have also personally directed, reviewed, and agree with the discharge instructions and disposition.
== END 2018-11-15 09:43 | disposition home or self-care (01) ==
LOC: C.ER 08:31
DX: F31.9 Bipolar disorder, unspecified (principal)

== ENCOUNTER 2018-12-08 23:51 | Emergency (ER) | payer BC, MEDICAID ==
[2018-12-08 23:52] VITALS: BMI 45.8
[2018-12-09 00:01] VITALS: RESP 20
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
[2018-12-09 01:52] VITALS: BP 110/73; PULSE 82; TEMP 97.8; O2SAT 100
== END 2018-12-09 02:43 | disposition home or self-care (01) ==
LOC: C.ER 23:51
DX: F32.9 Major depressive disorder, single episode, unspecified (principal); E78.00 Pure hypercholesterolemia, unspecified; F31.9 Bipolar disorder, unspecified

== ENCOUNTER 2018-12-21 04:30 | Emergency (ER) | payer BC, MEDICAID ==
[2018-12-21 04:30] VITALS: BMI 45.8
--- NOTE | 2018-12-21 05:26 | C.PDOC ---
History Of Present Illness 23 year old female presents to the ED requesting evaluation. Patient states she wants to "talk with someone about relationships". Patient reports she is not seeking for admission. Patient denies SI/HI, hallucinations, injury, fall, trauma, no other medical complaints. Time Seen by Provider: 12/21/18 04:59 Chief Complaint (Nursing): Psychiatric Evaluation History Per: Patient History/Exam Limitations: no limitations Onset/Duration Of Symptoms: Hrs Current Symptoms Are (Timing): Still Present Suicide/Self Injury Attempted (Context): None Modifying Factor(s): None Associated Symptoms: denies: Depression, Suicidal Thoughts, Suicidal Plan Recent travel outside of the [place]: No Additional History Per: Patient Past Medical History Reviewed: Historical Data, Nursing Documentation, Vital Signs Vital Signs: Last Vital Signs Temp 98.5 F 12/21/18 04:38 Pulse 73 12/21/18 04:38 Resp 18 12/21/18 04:38 BP 114/79 12/21/18 04:38 Pulse Ox 97 12/21/18 04:38 - Medical History PMH: Anxiety, Asthma, Back Problems (Scoliosis), Bipolar Disorder, Depression, Hypercholesterolemia, Personality Disorder Denies: Diabetes, Hepatitis, HIV, HTN, Chronic Kidney Disease, Seizures, Sexually Transmitted Disease Surgical History: No Surg Hx - [facility] Procedures FAMILY THERAPY (08/18/14) GROUP PSYCHOTHERAPY (11/12/17) INDIVID PSYCHOTHERAP NEC (04/26/15) INDIVIDUAL PSYCHOTHERAPY, COGNITIVE-BEHAVIORAL (11/12/17) INDIVIDUAL PSYCHOTHERAPY, SUPPORTIVE (01/10/18) INJECT/INFUSE NEC (08/23/14) INTRODUCTION OF SERUM/TOX/VACCINE INTO MUSCLE, PERC APPROACH (11/12/17) OTHER GROUP THERAPY (04/26/15) PSYCHIA INTERV/EVAL NEC (09/23/14) PSYCHIAT DRUG THERAP NEC (06/21/15) Family History: States: Diabetes - Social History Hx Tobacco Use: No Hx Alcohol Use: Yes Hx Substance Use: No - Immunization History Hx Tetanus Toxoid Vaccination: Yes Hx Influenza Vaccination: No Hx Pneumococcal Vaccination: No Review Of Systems Constitutional: Negative for: Fever, Chills Cardiovascular: Negative for: Chest Pain Respiratory: Negative for: Shortness of Breath Gastrointestinal: Negative for: Nausea, Vomiting, Abdominal Pain Skin: Negative for: Rash Psych: Negative for: Depression, Suicidal ideation Physical Exam - Physical Exam Appears: Non-toxic, No Acute Distress Skin: Normal Color, Warm, Dry Head: Atraumatic, Normacephalic Eye(s): bilateral: Normal Inspection Neck: Normal ROM, Supple Chest: Symmetrical Cardiovascular: Rhythm Regular Respiratory: Normal Breath Sounds, No Rales, No Rhonchi, No Wheezing Gastrointestinal/Abdominal: Soft, No Tenderness, No Guarding, No Rebound Extremity: Normal ROM, No Tenderness Neurological/Psych: Oriented x3, Normal Speech, Normal Cognition Gait: Steady ED Course And Treatment O2 Sat by Pulse Oximetry: 97 (ON RA) Pulse Ox Interpretation: Normal Progress Note: As per Crisis cancelor, morning shift will talk to her because he is busy dealing with 2 patients that need to be transferred. After patient was informed about it she requested to be d/c home. Patient sts she is not suicidal/homisidal and will come at another time to talk. Disposition - Disposition Disposition: HOME/ ROUTINE Disposition Time: 06:51 Condition: STABLE Additional Instructions: Follow up with your Psychiatrist as instructed. Return to ED if feel worse. 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 - Scribe Statement The provider has reviewed the documentation as recorded by the Scribe Jonathan Taylor All medical record entries made by the Scribe were at my direction and personally dictated by me. I have reviewed the chart and agree that the record accurately reflects my personal performance of the history, physical exam, medical decision making, and the department course for this patient. I have also personally directed, reviewed, and agree with the discharge instructions and disposition. Physician Patient Turnover Patient Signed Over To: Erendira Peralta Handoff Comments: Pending Crisis eval and dispo
[2018-12-21 06:58] VITALS: BP 121/82; PULSE 74; RESP 16; TEMP 98.3
[2018-12-22 19:23] VITALS: O2SAT 97
== END 2018-12-21 07:16 | disposition home or self-care (01) ==
LOC: C.ER 04:30
DX: F32.9 Major depressive disorder, single episode, unspecified (principal); E78.00 Pure hypercholesterolemia, unspecified